=== PATIENT | male | born 1990 | race African-American/Black ===

== ENCOUNTER 2022-12-18 03:57 | Emergency (ER) | payer BC ==
[~2022-12-18] VITALS: Ht 180.3 cm; Wt 100.0 kg
[2022-12-18] MEDS ORDERED: MORPHINE SULFATE 4 MG/ML CPJ (NOT FOR IM USE) IV STA (05:45)
[2022-12-18] MEDS ORDERED: ONDANSETRON HCL 4MG/2ML INJ IV STA (05:45)
[2022-12-18] MEDS ORDERED: SODIUM CHLORIDE 0.9% 1,000 ML IV ONE (05:45)
[2022-12-18 06:12] LABS: BASOPHILS % 0.8 % (0.0-2.0); EOSINOPHILS % 4.4 % (0.0-5.0); HEMATOCRIT. 42.4 % (42.0-52.0); HEMOGLOBIN. 14.4 g/dL (14.0-18.0); LYMPHOCYTES % 38.2 % (20.0-50.0); MEAN CORPUSCULAR HEMOGLOBIN 30.6 pg (28.0-32.0); MEAN CORPUSCULAR VOLUME 89.8 fL (80.0-94.0); MEAN PLATELET VOLUME 7.1 fl (7.4-10.4); NEUTROPHILS % 48.6 % (40.0-76.0); PLATELET 229 x1000/uL (130-400); RED BLOOD CELL COUNT 4.72 mill/uL (4.7-6.1); RED CELL DISTRIBUTION WIDTH 13.7 % (11.6-14.6)
[2022-12-18 06:18] LABS: CHLORIDE 104 mEq/L (98-107)
[2022-12-18 06:21] LABS: PROTHROMBIN TIME 11.1 sec (9.6-11.0)
[2022-12-18 07:56] LABS: CLARITY URINE CLEAR (CLEAR); COLOR URINE YELLOW (YELLOW); KETONES URINE NEGATIVE (NEGATIVE); LEUKOCYTE ESTERASE URINE NEGATIVE (NEGATIVE); NITRITE URINE NEGATIVE (NEGATIVE); OCCULT BLOOD URINE NEGATIVE (NEGATIVE); PH URINE 6.5 (4.5-8.0); PROTEIN URINE NEGATIVE (NEGATIVE); SPECIFIC GRAVITY URINE 1.027 (1.005-1.030); UROBILINOGEN URINE 0.2 E.U./dL (0.2-1.0)
[2022-12-18] MEDS ORDERED: KETOROLAC 30MG/ML VIAL IV ONE (09:00)
[2022-12-18] MEDS ORDERED: IBUP-2030 MT (09:12)
[2022-12-18] MEDS ORDERED: METH-773 MT (09:12)
[2022-12-18 09:51] VITALS: BP 117/75
== END 2022-12-18 09:52 | disposition home or self-care (01) ==
LOC: ER 03:57
DX: S09.8XXA Other specified injuries of head, initial encounter (principal); S00.83XA Contusion of other part of head, initial encounter; S89.82XA Other specified injuries of left lower leg, initial encounter; S99.822A Other specified injuries of left foot, initial encounter; S49.82XA Other specified injuries of left shoulder and upper arm, initial encounter; S39.81XA Other specified injuries of abdomen, initial encounter; R04.0 Epistaxis; M54.2 Cervicalgia; V43.62XA Car passenger injured in collision with other type car in traffic accident, initial encounter; Y93.89 Activity, other specified; Y92.410 Unspecified street and highway as the place of occurrence of the external cause; Y99.9 Unspecified external cause status
CPT/HCPCS: 36415; 70450; 70486; 71045; 71260; 72125; 73030; 73562; 73630; 74177; 80053; 81003; 85025; 85610; 93005; 96361; 96374; 96375; 99291; J1885; J2270; J2405; J7030; Z7610